=== PATIENT | male | born 1960 | race Caucasian/White ===

== ENCOUNTER → 2020-11-09 | Outpatient (CLI) | payer BC | LOC: KOH-I 12:46 | DX: Z12.2 Encounter for screening for malignant neoplasm of respiratory organs (principal); F17.210 Nicotine dependence, cigarettes, uncomplicated; K80.20 Calculus of gallbladder without cholecystitis without obstruction | CPT/HCPCS: 71271 ==

== ENCOUNTER → 2020-12-20 | Outpatient (CLI) | payer BC | LOC: EXRD 10:26 | DX: M54.2 Cervicalgia (principal); M47.812 Spondylosis without myelopathy or radiculopathy, cervical region | CPT/HCPCS: 72040 ==

== ENCOUNTER → 2021-09-20 | Outpatient (CLI) | payer BC | LOC: NM 08:38 | DX: I10 Essential (primary) hypertension (principal); E78.5 Hyperlipidemia, unspecified; R93.1 Abnormal findings on diagnostic imaging of heart and coronary circulation; Z87.891 Personal history of nicotine dependence | CPT/HCPCS: 78452; 93017; A9502; J2785 ==

== ENCOUNTER → 2021-11-17 | Outpatient (CLI) | payer BC | LOC: KOH-I 11-10 09:30 | DX: Z87.891 Personal history of nicotine dependence (principal) | CPT/HCPCS: 71271 ==

== ENCOUNTER → 2021-12-20 | Outpatient (CLI) | payer BC | LOC: HEART 5 11-29 09:00 | DX: R94.31 Abnormal electrocardiogram [ECG] [EKG] (principal); I08.1 Rheumatic disorders of both mitral and tricuspid valves | CPT/HCPCS: 93306 ==

== ENCOUNTER → 2022-05-14 | Outpatient (CLI) | payer BC | LOC: EXRD 14:22 | DX: M47.26 Other spondylosis with radiculopathy, lumbar region (principal) | CPT/HCPCS: 72100 ==